=== PATIENT | female | born 1980 | race Caucasian/White ===

== ENCOUNTER 2022-06-18 08:41 | Emergency (ER) | payer OTHER, BC, SELFPAY ==
[2022-06-18 08:56] VITALS: BP 125/77; PULSE 74; RESP 16; TEMP 37.6; O2SAT 100
[2022-06-18 09:05] VITALS: BP 125/77; PULSE 74; RESP 16; TEMP 37.6; O2SAT 100
--- NOTE | 2022-06-18 09:09 | ED.WOUNDLAC ---
HPI - Wound/Laceration General Chief Complaint: Wound/Laceration Stated Complaint: Right Hand Finger Laceration Time Seen by Provider: 06/18/22 09:04 Source: patient and RN notes reviewed Mode of arrival: ambulatory Limitations: no limitations History of Present Illness HPI narrative: 41-year-old female presents with concern for infection to the third digit of her right hand. She reports last Monday she got a small superficial laceration on the digit below the nailbed, not involving the nailbed. Reports 2 days later she used skin glue on the area because it continued to bleed. Reports after she put the skin glue on she had swelling, tenderness, redness to the area. Reports yesterday she noticed streaking up her arm. She reports the streaking has improved. She reports she has been soaking the finger in warm water and Epsom salt. She denies body aches,, fever, sweats. She denies decreased sensation, strength, range of motion of the digit. Related Data Home Medications Medication Instructions Recorded Confirmed citalopram 20 mg tablet 20 mg PO DAILY 02/09/21 06/18/22 Allergies Allergy/AdvReac Type Severity Reaction Status Date / Time No Known Allergies Allergy Mild Verified 06/18/22 08:52 Review of Systems Review of Systems: CONSTITUTIONAL: Denies malaise, chills, sweats, or fever. EYES: Denies redness, or discharge. ENT: Denies rhinorrhea, congestion, swollen lips, swollen tongue CARDIOVASCULAR: Denies chest pain, palpitations, or edema. RESPIRATORY: Denies cough or dyspnea. GASTROINTESTINAL: Denies abdominal pain, nausea, vomiting SKIN: Reports infected wound on the third digit of her right hand MUSCULOSKELETAL: Denies joint pain or myalgia. NEUROLOGIC: Denies headache. All systems reviewed & are unremarkable except as noted in HPI and below PMFSH Family History Family History Father Family history of thyroid disease Hypertension Mother Hypertension Family history of diabetes mellitus in first degree relative Social History Social History Smoking status: Current some day smoker Alcohol intake: current Comments At time of signature, agree with nursing past medical, surgical, social and family history. There is no relevant family history pertinent to the presenting complaint Exam Narrative: GENERAL: Well-appearing, well-nourished, and in no acute distress. HEAD: Normocephalic, atraumatic. EYES: PERRLA, conjunctivae clear, and EOMI. ENT: Mucous membranes moist. Oropharynx without edema, erythema or lesions. NECK: Supple. No lymphadenopathy CHEST: Clear to auscultation. No respiratory distress. HEART: Regular rate and rhythm. SKIN: Warm, dry. NEURO: Alert and oriented x3. PSYCH: Normal mood and affect Extrem: Hand/finger images: 1. Approximately 0.75 cm circular area of induration, erythema, edema with sharp margins overlying a small hematoma. No fluctuation or drainage noted. Not involving the nailbed. Course Course Emergency Course: Patient is aware of diagnosis, understands and agrees to treatment plan. Anticipatory guidance given. Patient agrees to follow-up as directed and is aware of reasons to seek care at the emergency department. Portions of this record may have been created with voice recognition software Level of Care: Express Care Visit Vital Signs Vital signs: Vital Signs Temperature 99.6 F 06/18/22 08:56 Pulse Rate 74 06/18/22 08:56 Respiratory Rate 16 06/18/22 08:56 Blood Pressure 125/77 06/18/22 08:56 Pulse Oximetry 100 06/18/22 08:56 Oxygen Delivery Room Air 06/18/22 08:56 Temperature 99.6 F 06/18/22 09:05 Pulse Rate 74 06/18/22 09:05 Respiratory Rate 16 06/18/22 09:05 Blood Pressure 125/77 06/18/22 09:05 Pulse Oximetry 100 06/18/22 09:05 Oxygen Delivery Room Air 06/18/22 09:05 Reviewed. MDM - Wound
== END 2022-06-18 09:16 | disposition home or self-care (01) ==
PROVIDERS: Emergency Provider Nurse Practitioner; PCP Family Medicine
DX: S61.202A Unspecified open wound of right middle finger without damage to nail, initial encounter (principal); L08.9 Local infection of the skin and subcutaneous tissue, unspecified; X58.XXXA Exposure to other specified factors, initial encounter; F17.200 Nicotine dependence, unspecified, uncomplicated; F41.9 Anxiety disorder, unspecified
CPT/HCPCS: 99213; G0463

== ENCOUNTER 2023-12-06 15:16 | Outpatient (CLI) | payer OTHER, BC, SELFPAY ==
--- NOTE | ~2023-12-06 | MM_ITS ---
EXAMINATION: MM scrn enriqueta implant BI w donn HISTORY: . TECHNIQUE: Craniocaudal and mediolateral oblique 3-D tomosynthesis images with implant displacement a nd synthetic 2-D images were generated. Craniocaudal and mediolateral oblique views of the breasts wi thout implant displacement were obtained using full field digital mammography. CAD analysis was submi tted and interpreted. COMPARISON: No prior mammogram is available for comparison at this institution. BREAST PARENCHYMAL COMPOSITION: Not dense: There are scattered areas of fibroglandular density. FINDINGS: There is no evidence of suspicious mass, calcification, or architectural distortion to sugg est malignancy in either breast. There has been no suspicious interval change. IMPRESSION: 1. No mammographic evidence of malignancy. 2. Recommend routine screening mammography in one year. BI-RADS Category 1: Negative Reviewed, dictated and finalized at location A.
== END 2023-12-06 15:17 ==
LOC: MICIMG 15:18
PROVIDERS: PCP Nurse Practitioner; Visit Provider Nurse Practitioner
DX: Z12.31 Encounter for screening mammogram for malignant neoplasm of breast (principal)
CPT/HCPCS: 77063; 77067

== ENCOUNTER 2023-12-25 07:01 | Outpatient (CLI) | payer OTHER, BC, SELFPAY ==
[2023-12-25 07:31] LABS: Hemoglobin 13.3 g/dL (12.0-15.0); Mean Corpuscular HGB Conc 33.3 g/dl (32-36); Mean Corpuscular Hemoglobin 31.1 pg (26-34); Mean Corpuscular Volume 93.5 fl (80-100); Mean Platelet Volume 10.1 fl (7.4-10.4); Platelet Count Result 263 k/mm3 (150-375); Red Blood Count 4.28 M/mm3 (4.2-5.4); Red Cell Distribution Width 12.6 % (11.5-14.5); White Blood Count 6.9 K/mm3 (4.5-10.0)
[2023-12-25 08:32] LABS: Vitamin D 25 Hydroxy 30.1 ng/mL
[2023-12-25 08:45] LABS: Thyroid Stimulating Hormone Reflex 0.868 uIU/mL (0.465-4.68)
[2023-12-25 08:58] LABS: Alanine Aminotransferase 17 U/L (6-35); Albumin Level 4.3 g/dL (3.5-5.1); Alkaline Phosphatase 51 U/L (38-126); Anion Gap 5 mmol/L (4-12); Aspartate Amino Transferase 28 U/L (14-36); Bilirubin,Total 0.5 mg/dL (0.2-1.3); Blood Urea Nitrogen 15 mg/dL (7-17); Calcium 9.1 mg/dL (8.4-10.2); Carbon Dioxide 26 mmol/L (22-30); Chloride 109 mmol/L (98-107); Cholesterol 175 mg/dL (0-200); Estimated Glomerular Filt Rate > 60; Glucose 109 mg/dL (65-110); HDL Direct 52 mg/dL; Potassium 4.5 mmol/L (3.4-5.0); Sodium 140 mmol/L (137-145); Triglycerides 65 mg/dL (<150)
[2023-12-25 09:11] LABS: LDL Cholesterol Direct 104 mg/dL
[2023-12-25 10:20] LABS: Hemoglobin A1C 4.6 % (<5.7)
== END 2023-12-25 07:02 | disposition home or self-care (01) ==
LOC: ANHLAB 07:04
PROVIDERS: PCP Nurse Practitioner; Visit Provider Obstetrics & Gynecology Gynecology
DX: Z01.419 Encounter for gynecological examination (general) (routine) without abnormal findings (principal)
CPT/HCPCS: 36415; 80053; 80061; 82306; 82607; 83036; 84443; 85027

== ENCOUNTER 2024-12-10 16:35 | Outpatient (CLI) | payer OTHER, BC, SELFPAY ==
--- NOTE | ~2024-12-10 | MM_ITS ---
EXAMINATION: MM scrn enriqueta implant BI w donn HISTORY: Screening mammogram TECHNIQUE: Craniocaudal and mediolateral oblique 3-D tomosynthesis images with implant displacement a nd synthetic 2-D images were generated. Craniocaudal and mediolateral oblique views of the breasts wi thout implant displacement were obtained using full field digital mammography. CAD analysis was submi tted and interpreted. COMPARISON: 12/06/2023 BREAST PARENCHYMAL COMPOSITION: Dense: The breasts are heterogeneously dense, which may obscure small masses FINDINGS: There is a new focal asymmetry medially in the right breast on CC view, posterior third. Th ere is a new cluster of focal asymmetries in the subareolar location of the left breast on CC view. T here are no suspicious cluster of calcifications. No skin thickening. IMPRESSION: 1. New bilateral focal breast asymmetries. 2. Additional mammographic views and possible breast ultrasound are recommended. BI-RADS Category 0: Incomplete: Needs additional imaging evaluation. Reviewed, dictated and finalized at location A. IMPRESSION: 1. New bilateral focal breast asymmetries. 2. Additional mammographic views and possible breast ultrasound are recommended . BI-RADS Category 0: Incomplete: Needs additional imaging evaluation.
== END 2024-12-10 16:36 | disposition home or self-care (01) ==
LOC: MICIMG 16:36
PROVIDERS: PCP Obstetrics & Gynecology Gynecology; Visit Provider Obstetrics & Gynecology Gynecology
DX: Z12.31 Encounter for screening mammogram for malignant neoplasm of breast (principal); R92.8 Other abnormal and inconclusive findings on diagnostic imaging of breast
CPT/HCPCS: 77063; 77067

== ENCOUNTER 2025-03-26 08:51 | Outpatient (CLI) | payer OTHER, BC, SELFPAY ==
--- NOTE | ~2025-03-26 | MM_ITS ---
EXAMINATION: MM diag enriqueta implant BI w donn INDICATION: 44-year old female; BI-RADS 0, callback to evaluate Both breasts asymmetries. COMPARISON: 12/10/2024 and 12/06/2023 TECHNIQUE: Digital breast tomosynthesis True lateral view and spot compression pain CC ID views of [place]a th breasts were obtained with computer-aided detection to assist in interpretation of the study. FINDINGS: The breasts are heterogeneously dense, which may obscure small masses. The asymmetries seen in the Medial, posterior third right breast and cluster of focal asymmetries in the subareolar location of the left breast on the screening mammogram does not persist with additiona l views, compatible with normal overlapping tissue.. IMPRESSION: Both breasts asymmetry represents superimposition of fibroglandular tissue. No further investigation is necessary. RECOMMENDATION: Annual screening mammography in 12 months BI-RADS 2, BENIGN Reviewed, dictated and finalized at location []
== END 2025-03-26 08:52 | disposition home or self-care (01) ==
LOC: MICIMG 08:53
PROVIDERS: PCP Obstetrics & Gynecology Gynecology; Visit Provider Obstetrics & Gynecology Gynecology
DX: R92.8 Other abnormal and inconclusive findings on diagnostic imaging of breast (principal); Z98.82 Breast implant status
CPT/HCPCS: 77062; 77066; G0279

== ENCOUNTER 2025-09-03 14:20 | Emergency (ER) | payer OTHER, BC, SELFPAY ==
[2025-09-03 14:36] VITALS: BP 117/66; PULSE 81; RESP 18; TEMP 36.4; O2SAT 100
--- NOTE | 2025-09-03 14:40 | ED_ITS ---
HPI - Skin/Abscess/Foreign Bdy General Chief complaint: Skin/Abscess/Foreign Body Stated complaint: Possible Scabies Time Seen by Provider: 09/03/25 14:59 Source: patient and RN notes reviewed Mode of arrival: ambulatory Limitations: no limitations History of Present Illness HPI narrative: 44 year ol female presents with concern of for scabies. Reports family members have scabies. She has had a rash for many weeks on her hands, arms, inner thighs. MD complaint: rash Related Data Home Medications ?Medication ?Instructions ?Recorded ?Confirmed ?Last Taken ?Type citalopram 20 mg tablet 20 mg PO DAILY 02/09/2108/06 Unknown History Allergies Allergy/AdvReac Type Severity Reaction Status Date / Time No Known Allergies Allergy Mild Verified 09/03/25 14:26 Review of Systems Review of Systems: CONSTITUTIONAL: Denies malaise, chills, sweats, or fever. SKIN: Reports itchy rash All systems reviewed & are unremarkable except as noted in HPI and below PMFSH Family History Family History Father Family history of thyroid disease Hypertension Mother Hypertension Family history of diabetes mellitus in first degree relative Social History Social History Smoking status: Current some day smoker Alcohol intake: current Comments At time of signature, agree with nursing past medical, surgical, social and family history. There is no relevant family history pertinent to the presenting complaint Exam Narrative: GENERAL: Well-appearing, well-nourished, and in no acute distress. HEAD: Normocephalic, atraumatic. EYES: PERRLA, conjunctivae clear, and EOMI. ENT: Mucous membranes moist. NECK: Supple. No lymphadenopathy CHEST: Clear to auscultation. No respiratory distress. HEART: Regular rate and rhythm. SKIN: Warm, dry. Scattered scabs, linear erythematous papules noted to the arms and hands NEURO: Alert and oriented x3. PSYCH: Normal mood and affect Course Course Emergency Course: Patient is aware of diagnosis, understands and agrees to treatment plan. Anticipatory guidance given. Patient agrees to follow-up as directed and is aware of reasons to seek care at the emergency department. Portions of this record may have been created with voice recognition software Level of Care: Express Care Visit Vital Signs Vital signs: Vital Signs Temperature 97.5 F L 09/03/25 14:36 Pulse Rate 81 09/03/25 14:36 Respiratory Rate 18 09/03/25 14:36 Blood Pressure 117/66 09/03/25 14:36 Pulse Oximetry 100 09/03/25 14:36 Oxygen Delivery Room Air 09/03/25 14:36 Temperature 97.5 F L 09/03/25 14:36 Pulse Rate 81 09/03/25 14:36 Respiratory Rate 18 09/03/25 14:36 Blood Pressure 117/66 09/03/25 14:36 Pulse Oximetry 100 09/03/25 14:36 Oxygen Delivery Room Air 09/03/25 14:36 MDM Differential Diagnosis Differential Diagnosis: I evaluated this patient in the [facility]. History is obtained from patient who is an independent historian and physical exam was performed.? Available medical records were reviewed. ? Exam findings and relevant testing show no acute concerns or changes; patient is non-toxic appearing and is in no distress. ? Does not appear at this time to be erythema multiforme, bullous, SJS, TEN; no evidence at this time to suggest RMSF, endocarditis or Lyme disease; patient looks well, nontoxic and is tolerating oral intake; no neurologic signs or symptoms; no headache, photophobia or neck pain; afebrile; appropriate for initial outpatient treatment; discussed the importance of follow-up, patient agrees; question, viral exanthema, contact dermatitis, allergic dermatitis, eczema, urticaria, scabies. No soft palate or uvula edema, no tongue, lip edema or other mucosal involvement, no respiratory compromise, no stridor, no wheezing, no wheezing, no history of syncope, no hypotension, no nausea, vomiting, or diarrhea. Instructed patient to go to nearest ER immediately for any worsening symptoms including but not limited to: fever, spreading rash, pain, sore throat, headache, dizziness, chest pain, trouble breathing, or any symptoms concerning to the patient. Differential diagnosis and treatment plan were discussed with the patient. Patient agrees with discussion and after shared medical decision making agrees with plan of care. All questions were answered to the patient's satisfaction. Patient is appropriate for outpatient treatment and follow-up. Discharge Plan Discharge Clinical Impression: Scabies Patient Disposition: Home Condition: Stable Instructions: Scabies (ED) Additional Instructions: Use medication as prescribed Avoid scratching when possible to prevent worsening of the condition and disruption of the skin that could lead to bacterial infection To relieve itching, place a cool washcloth or some ice over the area that itches, rather than scratching Follow up with primary care provider or seek ER if you have trouble breathing, become hoarse, or start wheezing, develop belly cramps, vomiting or feel dizzy. Patient Language: Trinid[place] Prescriptions: New permethrin 5 % cream 1 applic topical Q14D Qty: 60 1RF Rx Instructions: apply second treatment 14 days after first treatment No Action citalopram 20 mg tablet 20 mg PO DAILY albuterol sulfate [ProAir HFA] 90 mcg/actuation HFA aerosol inhaler 1 inh inhalation Q4H PRN (Reason: shortness of breath or wheezing) Qty: 8.5 0RF Follow-up/Referrals: Shelton Garcia MD [Primary Care Provider, Family Practice] Time of Disposition: 15:11
== END 2025-09-03 15:16 | disposition home or self-care (01) ==
PROVIDERS: Emergency Provider Nurse Practitioner; PCP Family Medicine
DX: B86 Scabies (principal); F17.200 Nicotine dependence, unspecified, uncomplicated; F41.9 Anxiety disorder, unspecified
CPT/HCPCS: 99213; G0463